=== PATIENT | female | born 1960 | race Caucasian/White ===

== ENCOUNTER → 2017-10-26 | Outpatient (CLI) | payer OTHER ==
--- NOTE | 2017-10-26 15:58 | MR ---
EXAMINATION TYPE: MR shoulder RT wo con DATE OF EXAM: 10/26/2017 COMPARISON: Outside x-ray dated 10/10/2017 HISTORY: Pain in right shoulder TECHNIQUE: Multiplanar, multisequence imaging of the right shoulder is performed without contrast. FINDINGS: Rotator Cuff: There is thickening and increased signal involving the distal margin and insertion of the supraspina tus tendon extending a length of approximately 1 cm and AP dimension of 1.5 cm. In greatest involveme nt of the anterior fibers. Findings compatible with partial tear with no evidence of retraction. Infraspinatus and subscapularis tendons appear intact. Acromioclavicular Joint: There is marked hypertrophic change of the AC joint with narrowing of the olegario int space. There are spurs extending inferiorly impression the supraspinatus tendon and muscle compat ible with impingement. Glenohumeral Joint: No sizable joint effusion. Glenohumeral ligaments appear intact. Labrum: The labrum appears grossly intact given limitation of non-arthrogram study. Biceps Tendon: Bicipital tendon is well situated within the bicipital groove. Small amount of increas ed fluid surrounding the tendon within the sheath compatible with tendinosis. No evidence of retracti on or tear. Bone marrow signal: No focal abnormal marrow signal is appreciated. IMPRESSION: 1. Impingement secondary to AC joint arthropathy of the supraspinatus tendon and muscle resulting in severe tendinosis and partial tear involving the distal margin and insertion of the supraspinatus ten don. No evidence of retraction. 2. Mild bicipital tendinosis.
== END | disposition home or self-care (01) ==
LOC: RADMRIMAIN 15:06
PROVIDERS: ATTEND Orthopaedic Surgery
DX: M75.111 Incomplete rotator cuff tear or rupture of right shoulder, not specified as traumatic (principal); M12.9 Arthropathy, unspecified; M67.813 Other specified disorders of tendon, right shoulder

== ENCOUNTER → 2017-11-24 | Outpatient (CLI) | payer OTHER ==
[2017-11-24 16:50] LABS: Basophils # (A) 0.1 k/uL (0-0.2); Basophils % (A) 1 %; Eosinophils # (A) 0.2 k/uL (0-0.7); Eosinophils % (A) 3 %; Lymphocytes # (A) 2.5 k/uL (1.0-4.8); Lymphocytes % (A) 37 %; MCH 31.5 pg (25.0-35.0); MCHC 35.8 g/dL (31.0-37.0); MCV 87.9 fL (80.0-100.0); Mean Platelet Volume 6.8; Monocytes # (A) 0.5 k/uL (0-1.0); Monocytes % (A) 7 %; Neutrophils # (A) 3.2 k/uL (1.3-7.7); Neutrophils % (A) 49 %; Platelet Count 262 k/uL (150-450); RBC 4.78 m/uL (3.80-5.40); WBC 6.6 k/uL (3.8-10.6)
== END | disposition home or self-care (01) ==
LOC: LABPAT 16:07
PROVIDERS: ATTEND Orthopaedic Surgery
DX: Z01.818 Encounter for other preprocedural examination (principal); Z01.812 Encounter for preprocedural laboratory examination; M75.41 Impingement syndrome of right shoulder
CPT/HCPCS: 36415; 80051; 85025; 93005

== ENCOUNTER 2017-12-06 06:49 | Day surgery (SDC) | payer OTHER ==
--- NOTE | 2017-12-05 08:59 | HP ---
HISTORY AND PHYSICAL Surgery is scheduled for 12/06/2017. Isis Brown is a 56-year-old patient seen with progressive right shoulder pain. After having treatment options discussed, she elected to proceed with arthroscopy. Consent regarding the procedure was obtained. PAST MEDICAL HISTORY: Noncontributory. PAST SURGICAL HISTORY: section, ankle surgery. DAILY MEDICATIONS: None reported. ALLERGIES: None known. SOCIAL HISTORY: Patient denies tobacco use. PHYSICAL EVALUATION RIGHT SHOULDER: Flexion is 150 degrees, abduction 140 degrees, external rotation is 40 degrees with some pain and weakness. Tenderness along the anterolateral acromion and rotator cuff insertion site as well as the acromioclavicular joint. Impingement sign is positive at 100 degrees. Drop-arm sign is positive. Distal neurovascular exam is intact. Radiographs of the right shoulder revealed a type 2 anterior acromion, evidence for acromioclavicular joint osteoarthritis and cystic changes of the greater tuberosity. An MRI of the right shoulder revealed a partial rotator cuff tear, impingement, biceps tendinitis and acromioclavicular joint osteoarthritis. IMPRESSION: Right shoulder impingement with partial rotator cuff tear and acromioclavicular joint osteoarthritis. PLAN: Right shoulder arthroscopy with subacromial decompression, possible arthroscopic rotator cuff repair probable Anup procedure and debridement. MMODL / IJN: [id number] /
[~2017-12-06 06:49] MED LIST: HYDROmorphone 0.5 MG/0.5 ML SYRINGE IVP PRN; LACTATED RINGERS 1,000 ML IV SCH; ONDANSETRON 4 MG/2 ML VIAL IVP PRN; ceFAZolin IN SWFI 2 GM/20 ML SYRINGE IVP ONE
[2017-12-06] MEDS ORDERED: LIDOCAINE 1% 20 ML VIAL (10MG/ML) FOR IV START INTRADERMA ONE (07:30)
[2017-12-06] MEDS ORDERED: MIDAZOLAM 2 MG/2 ML VIAL ONE (07:32)
[2017-12-06] MEDS ORDERED: DEXAMETHASONE SOD PHOSPHATE 10 MG/ML 1 ML VIAL IV ONE (07:51)
[2017-12-06] MEDS ORDERED: LIDOCAINE 1% INJ 10MG/ML (20 ML MDV) ONE (08:25)
[2017-12-06] MEDS ORDERED: PROPOFOL 10 MG/ML 20 ML VIAL IV ONE (08:25)
[2017-12-06] MEDS ORDERED: PHENYLEPHRINE-0.9% NACL SYG 1 MG/10 ML SYRINGE ONE (08:25)
[2017-12-06] MEDS ORDERED: fentaNYL (PF) 50 MCG/ML 2 ML AMP ONE (08:25)
[2017-12-06] MEDS ORDERED: SUCCINYLCHOLINE CHLORIDE 100 MG/5 ML SYR IV ONE (08:25)
--- NOTE | 2017-12-06 10:13 | P.OP ---
Date of Procedure: 12/06/17 Preoperative Diagnosis: Right shoulder impingement Postoperative Diagnosis: 1. Right shoulder rotator cuff tear 2. Right shoulder impingement 3. Right shoulder acromioclavicular joint osteoarthritis 4. Right shoulder partial long head biceps tendon tear 5. Right shoulder superficial labral tear Procedure(s) Performed: 1. Right shoulder arthroscopic rotator cuff repair 2. Right shoulder arthroscopic subacromial decompression 3. Right shoulder arthroscopic Anup procedure 4. Right shoulder arthroscopic biceps tenotomy 5. Right shoulder arthroscopic debridement labral tear Implants: none Anesthesia: GETA, regional (Interscalene block) Surgeon: Gabe Frederick Parts Finisher #1: Anthony Faye Estimated Blood Loss (ml): 15 Pathology: none sent Condition: stable Disposition: PACU Indications for Procedure: 56-year-old patient seen with progressive right shoulder pain. After treatment options were discussed, she elected to proceed with arthroscopy. Operative Findings: see description of procedure Description of Procedure: Patient underwent a shoulder block by department of anesthesia. The patient was then taken to the operative suite. The patient underwent a general anesthetic by the department of anesthesia. The patient was placed into a lateral position and secured. There was appropriate padding of the bony prominence. Right shoulder was then prepped and draped in normal sterile orthopedic fashion. We placed the extremity in 10 pounds of longitudinal traction. A posterior incision was now made for a posterior working portal site. The trocar and cannula were inserted into the glenohumeral joint. Arthroscopy was initiated. Spinal needle was now inserted anteriorly, to ascertain the anterior working portal site. An incision was now made in that area, a trocar was inserted followed by a probe. Was superficial tearing noted of the superior labrum. Partial tearing and hyperemia long head biceps tendon. Grade 1/2 chondromalacia changes anterior portion of the glenoid. No loose bodies. I performed an arthroscopic biceps tenotomy. I debrided the superficial labral tear down to stable tissue. The residual labrum was stable. Instruments now removed from the glenohumeral joint. Utilizing the posterior working portal site, the trocar and cannula were inserted into the subacromial space. Arthroscopy initiated. I made an incision 2 fingerbreadths lateral to the acromion. I introduced my trocar followed by my ArthroCare ablator. I now began ablating thick subacromial bursal tissue, which exposed the undersurface of the anterior acromion. This was diminished subacromial space. There was a very prominent anterior acromion. A motorized bur was introduced and a subacromial decompression was performed. I also excised some osteophytes off the inferior aspect of the distal clavicle. The AC joint was visualized and noted to be fairly arthritic. Our motorized bur was introduced in the anterior portal site and a Anup procedure was performed without difficulty, decompressing the AC joint nicely. I turned my attention to the rotator cuff. There was a fairly large intrasubstance rotator cuff tear present. I debrided the margins down to stable tissue. I passed 4 simple interrupted sutures through good bites of rotator cuff tendon. All 4 sutures were now tied arthroscopically repairing our intrasubstance tear very nicely. The suture limbs were clipped. The repair was probed and found to be stable. I injected 1 mL of UCT intra-articular. Instruments now removed from the portal sites. All portal sites were approximated with nylon suture. Sterile dressings were applied followed by a shoulder immobilizer. Marcus GREER assisted with the procedure. The patient was awakened, transferred to a bed, and taken to recovery in stable condition.
[2017-12-06 10:25] VITALS: RESP 16; TEMP 97
[2017-12-06 12:17] VITALS: BP 135/89; PULSE 83
== END 2017-12-06 12:52 | disposition home or self-care (01) ==
LOC: OR 06:49
PROVIDERS: ATTEND Orthopaedic Surgery
DX: M75.101 Unspecified rotator cuff tear or rupture of right shoulder, not specified as traumatic (principal); M75.41 Impingement syndrome of right shoulder; M19.011 Primary osteoarthritis, right shoulder; S43.491A Other sprain of right shoulder joint, initial encounter; S46.111A Strain of muscle, fascia and tendon of long head of biceps, right arm, initial encounter; X58.XXXA Exposure to other specified factors, initial encounter; M25.711 Osteophyte, right shoulder; Z79.1 Long term (current) use of non-steroidal anti-inflammatories (NSAID)
CPT/HCPCS: 64415; 81025; 29824; 29827; 29826; C1894; C1765; J2250; J1100; J2405; J2001; J3010; J2370; J0330; J2704; J0690

== ENCOUNTER → 2019-04-10 | Outpatient (CLI) | payer BC ==
--- NOTE | 2019-04-10 08:39 | BD ---
EXAMINATION TYPE: Axial Bone Density DATE OF EXAM: 04/10/2019 COMPARISON: NONE CLINICAL HISTORY: Postmenopausal female. Height: 63.5 IN Weight: 193 LBS RISK FACTORS HISTORY OF: Active: YES Postmenopausal woman: AGE 57 Take estrogen and/or progesterone medications: NOT NOW How long: TOOK CONTROL FOR 10 YEARS MEDICATIONS: Additional Medications: MULTI VIT, BABY ASPIRIN EXAM MEASUREMENTS: Bone mineral densitometry was performed using the [employer]. Bone mineral density as measured about the Lumbar spine is: ----- L1-L4(G/cm2): 1.269 T Score Values are as follows: ----- L2: 0.6 ----- L3: 0.6 ----- L4: 1.1 ----- L1-L4: 0.7 Bone mineral density BASELINE Bone mineral density about the R hip (g/cm2): 0.978 Bone mineral density about the L hip (g/cm2): 0.964 T Score values are as follows: -----R Neck: -0.4 -----L Neck: -0.5 -----R Total: 0.7 -----L Total: 1.0 Bone mineral density BASELINE IMPRESSION: Normal (Values between +1 and -1 indicate normal bone mass). Consider repeating this study in 5 year s or sooner if there is some new clinical indication. NOTE: T-SCORE=SD OF THE YOUNG ADULT MEAN.
--- NOTE | 2019-04-10 13:50 | MM ---
Reason for exam: screening (asymptomatic). Last mammogram was performed 3 years ago. History: Patient is postmenopausal. Excisional biopsy of the right breast. Took hormonal contraceptives for 11 years beginning at age 35. Physical Findings: A clinical breast exam by your physician is recommended on an annual basis and results should be correlated with mammographic findings. MG 3D Screening Mammo W/Cad Bilateral CC and MLO view(s) were taken. XCCL view(s) were taken of the left breast. Prior study comparison: April 25, 2016, left breast MG work up mamm w CAD LT. April 18, 2016, bilateral MG screening mammo w CAD. The breast tissue is heterogeneously dense. This may lower the sensitivity of mammography. Finding: There are typically benign vascular, round calcifications. Asymmetric breast tissue left breast is stable outer aspect. There is no discrete abnormality. ASSESSMENT: Benign, BI-RAD 2 RECOMMENDATION: Routine screening mammogram of both breasts in 1 year.
== END | disposition home or self-care (01) ==
LOC: RADMAMWWP 07:34
PROVIDERS: ATTEND Obstetrics & Gynecology
DX: Z12.31 Encounter for screening mammogram for malignant neoplasm of breast (principal); N95.1 Menopausal and female climacteric states
CPT/HCPCS: 77063; 77067; 77080

== ENCOUNTER → 2020-04-16 | Outpatient (CLI) | payer BC ==
--- NOTE | 2020-04-17 15:07 | MM ---
Reason for exam: screening (asymptomatic). Last mammogram was performed 1 year ago. History: Patient is postmenopausal. Excisional biopsy of the right breast. Took hormonal contraceptives for 11 years beginning at age 35. Physical Findings: A clinical breast exam by your physician is recommended on an annual basis and results should be correlated with mammographic findings. MG 3D Screening Mammo W/Cad Bilateral CC and MLO view(s) were taken. Prior study comparison: April 10, 2019, bilateral MG 3d screening mammo w/cad. April 25, 2016, left breast MG work up mamm w CAD LT. There are scattered fibroglandular densities. No significant changes when compared with prior studies. ASSESSMENT: Benign, BI-RAD 2 RECOMMENDATION: Routine screening mammogram of both breasts in 1 year.
== END | disposition home or self-care (01) ==
LOC: RADMAMWWP 07:07
PROVIDERS: ATTEND Obstetrics & Gynecology
DX: Z12.31 Encounter for screening mammogram for malignant neoplasm of breast (principal)
CPT/HCPCS: 77063; 77067

== ENCOUNTER 2020-06-19 10:51 | Day surgery (SDC) | payer BC ==
[2020-06-16 14:12] VITALS: BMI 31.6
[~2020-06-19 10:51] MED LIST changes: -HYDROmorphone 0.5 MG/0.5 ML SYRINGE IVP PRN; +LIDOCAINE 1% (10MG/ML) FOR IV START INTRADERMA PRN; -ONDANSETRON 4 MG/2 ML VIAL IVP PRN; -ceFAZolin IN SWFI 2 GM/20 ML SYRINGE IVP ONE
[2020-06-19 11:23] VITALS: TEMP 98.6
[2020-06-19] MEDS ORDERED: fentaNYL (PF) 50 MCG/ML 2 ML AMP IV ONE (12:35)
[2020-06-19] MEDS ORDERED: PROPOFOL 10 MG/ML 20 ML VIAL IV ONE (12:49)
--- NOTE | 2020-06-19 13:10 | P.PCN ---
Date of Procedure: 06/19/20 Procedure(s) Performed: BRIEF HISTORY: Patient is a 59-year-old pleasant white female scheduled for an elective colonoscopy as a part of screening for colorectal neoplasia. she has family history of colon cancer diagnosed in her father at age 60. PROCEDURE PERFORMED: Colonoscopy. PREOPERATIVE DIAGNOSIS:Screening for colon cancer and family history of colon cancer IV sedation per Anesthesia. PROCEDURE: After informed consent was obtained, the patient, was brought into the endoscopy unit. IV sedation was administered by Anesthesia under continuous monitoring. Digital rectal examination was normal. Initially the Olympus CF-160 flexible video colonoscope was then inserted in the rectum, gradually advanced into the cecum without any difficulty. Careful examination was performed as the scope was gradually being withdrawn. Ileocecal valve and the appendiceal orifice were visualized and appeared normal. Prep was excellent. Mucosa of the cecum, ascending colon, transverse colon, descending colon, sigmoid colon, and rectum appeared normal. scattered sigmoid diverticulosis. Retroflexion was performed in the rectum and no lesions were seen. The patient tolerated the procedure well. IMPRESSION: Normal-appearing colon from rectum to cecum with no evidence of colorectal neoplasia . Scattered sigmoid diverticulosis RECOMMENDATIONS: Findings of this examination were discussed with the patient as well as her family. She was advised to have a repeat screening colonoscopy in 5 years now because of the family history of colon.
[2020-06-19 13:38] VITALS: BP 124/81; PULSE 69; RESP 20
== END 2020-06-19 13:55 | disposition home or self-care (01) ==
LOC: ORWHC2ENDO 10:51
PROVIDERS: ATTEND Internal Medicine Gastroenterology
DX: Z12.11 Encounter for screening for malignant neoplasm of colon (principal); K57.30 Diverticulosis of large intestine without perforation or abscess without bleeding; Z80.0 Family history of malignant neoplasm of digestive organs; Z79.899 Other long term (current) drug therapy; Z79.82 Long term (current) use of aspirin; Z98.890 Other specified postprocedural states
CPT/HCPCS: J3010; J2704; G0105; 45378

== ENCOUNTER → 2021-05-31 | Outpatient (CLI) | payer BC ==
--- NOTE | 2021-06-02 09:36 | MM ---
Reason for exam: screening (asymptomatic). Last mammogram was performed 1 year and 1 month ago. History: Patient is postmenopausal. Excisional biopsy of the right breast. Took hormonal contraceptives for 11 years beginning at age 35. Physical Findings: A clinical breast exam by your physician is recommended on an annual basis and results should be correlated with mammographic findings. MG 3D Screening Mammo W/Cad Bilateral CC, MLO, and XCCL view(s) were taken. Prior study comparison: April 16, 2020, bilateral MG 3d screening mammo w/cad. April 10, 2019, bilateral MG 3d screening mammo w/cad. April 18, 2016, bilateral MG screening mammo w CAD. There are scattered fibroglandular densities. No significant changes when compared with prior studies. ASSESSMENT: Negative, BI-RAD 1 RECOMMENDATION: Routine screening mammogram of both breasts in 1 year.
== END | disposition home or self-care (01) ==
LOC: RADMAMWWP 15:21
PROVIDERS: ATTEND Obstetrics & Gynecology
DX: Z12.31 Encounter for screening mammogram for malignant neoplasm of breast (principal); Z78.0 Asymptomatic menopausal state
CPT/HCPCS: 77063; 77067

== ENCOUNTER 2022-01-13 22:47 | Emergency (ER) | payer BC ==
[2022-01-14 00:03] VITALS: TEMP 98.2
[2022-01-14] MEDS ORDERED: KETOROLAC 15 MG/ML 1 ML VIAL IM STA (01:06)
[2022-01-14] MEDS ORDERED: ORPHENADRINE 30 MG/ML 2 ML VIAL IM STA (01:06)
--- NOTE | 2022-01-14 01:21 | ED ---
Neck Injury/Pain HPI - General Chief Complaint: Neck Pain/Injury Stated Complaint: Left side neck pain Time Seen by Provider: 01/14/22 00:39 Source: RN notes reviewed Mode of arrival: ambulatory Limitations: no limitations - History of Present Illness Initial Comments: This is a pleasant 61-year-old female who comes ER complaining of right posterior neck pain which started a few hours ago. Patient states that she was riding in a car when it started. Patient states that turning her head to the right and leaning forward causes quite a bit of pain. Pain is sharp, somewhat alleviated by rest. She is able to her head to the left and extend her head with no significant history. She denies any chest pain or shortness of breath. There was no fall or injury. No paresthesias. No limb weakness. No vision or hearing disturbance. No slurred speech. No abdominal pain. No nausea vomiting. No headache. MD Complaint: neck pain - Related Data Home Medications Medication Instructions Recorded Confirmed Multivitamins, Thera [Theragran] 1 each PO DAILY 05/20/15 06/16/20 Aspirin [Adult Low Dose Aspirin EC] 81 mg PO QAM 06/16/20 06/16/20 Cetirizine HCl [Zyrtec] 10 mg PO HS 06/16/20 06/16/20 Water Pill (Unknown Name/Dose) 1 tab PO QAM 06/16/20 06/16/20 Previous Rx's Medication Instructions Recorded Cyclobenzaprine [Flexeril] 10 mg PO TID PRN #20 tab 01/14/22 Naproxen [Naprosyn] 375 mg PO Q12HR PRN #20 tablet 01/14/22 Allergies Allergy/AdvReac Type Severity Reaction Status Date / Time No Known Allergies Allergy Verified 01/14/22 00:04 Review of Systems ROS Statement: Those systems with pertinent positive or pertinent negative responses have been documented in the HPI. ROS Other: All systems not noted in ROS Statement are negative. Past Medical History Past Medical History: Hearing Disorder / Deafness, Osteoarthritis (OA) Additional Past Medical History / Comment(s): SEASONAL SINUS-HAS FLUID IN RIGHT EAR CAUSING DIFFICULTY WITH HEARING. History of Any Multi-Drug Resistant Organisms: None Reported Past Surgical History: Breast Surgery, Section, Orthopedic Surgery Additional Past Surgical History / Comment(s): RIGHT BREAST LUMPECTOMY- BENIGN, LEFT ANKLE SURGERY X2, BUNIONECTOMY RIGHT FOOT, polyps removed. Past Anesthesia/Blood Transfusion Reactions: No Reported Reaction Past Psychological History: No Psychological Hx Reported Smoking Status: Never smoker Past Alcohol Use History: None Reported Past Drug Use History: None Reported - Past Family History Mother Family Medical History: Hypertension Father Family Medical History: Cancer Additional Family Medical History / Comment(s): COLON CANCER. General Exam Limitations: no limitations General appearance: alert, in no apparent distress Head exam: Present: atraumatic, normocephalic, normal inspection Eye exam: Present: normal appearance, PERRL, EOMI. Absent: scleral icterus, conjunctival injection, periorbital swelling ENT exam: Present: normal exam, mucous membranes moist, normal external ear exam Neck exam: Present: normal inspection, tenderness (Patient has some tenderness to the right posterior cervical paraspinals. Axial rotation to the right is limited to about 30. Forward flexion increases pain. Patient has full axial rotation to the left.). Absent: meningismus, full ROM, lymphadenopathy Respiratory exam: Present: normal lung sounds bilaterally. Absent: respiratory distress, wheezes, rales, rhonchi, stridor Cardiovascular Exam: Present: regular rate, normal rhythm, normal heart sounds. Absent: systolic murmur, diastolic murmur, rubs, gallop, clicks GI/Abdominal exam: Present: soft, normal bowel sounds. Absent: distended, tenderness, guarding, rebound, rigid Extremities exam: Present: normal inspection, full ROM, normal capillary refill. Absent: tenderness, pedal edema, joint swelling, calf tenderness Back exam: Present: normal inspection Neurological exam: Present: alert, oriented X3, CN II-XII intact Psychiatric exam: Present: normal affect, normal mood Skin exam: Present: warm, dry, intact, normal color. Absent: rash Course Vital Signs 01/13/22 23:59 Temperature 98.2 F Pulse Rate 84 Respiratory 19 Rate Blood Pressure 170/92 O2 Sat by Pulse 99 Oximetry - Reevaluation(s) Reevaluation #1: 01/14/22 02:02 Patient reevaluated and is improved. Patient neurologically intact. Alert and oriented 4, cranial nerves II through XII intact. Medical Decision Making - Medical Decision Making Patient improved after medications here in the emergency department. Patient was reevaluated prior to discharge. Neurologically intact. Cranial nerves II through XII intact. Patient states the pain is much better. Patient was told to return to the ER for any signs or symptoms worsen. Told to return immediately if any other problems arise. All questions answered. Treatment plan discussed. Patient in agreement Every effort has been made to ensure accuracy of this dictation. However, due to the limitations of electronic medical records and dictation devices, errors in charting still occur. Social resting physician is Dr. Conrad Disposition Clinical Impression: Acute cervical myofascial strain, Elevated blood pressure reading Disposition: HOME SELF-CARE Condition: Good Instructions (If sedation given, give patient instructions): Cervical Strain (ED), Hypertension (ED) Additional Instructions: Follow-up with your regular physician as directed. Return to the ER immediately if any symptoms worsen, new symptoms arise, or any other problems develop. Prescriptions: Cyclobenzaprine [Flexeril] 10 mg PO TID PRN #20 tab PRN Reason: Spasms Naproxen [Naprosyn] 375 mg PO Q12HR PRN #20 tablet PRN Reason: Pain Is patient prescribed a controlled substance at d/c from ED?: No Referrals: Marli Chong MD [Primary Care Provider] - 1-2 days Time of Disposition: 02:03
[2022-01-14 02:21] VITALS: BP 142/93; PULSE 72; RESP 18
== END 2022-01-14 02:21 | disposition home or self-care (01) ==
LOC: EC 22:47
DX: S16.1XXA Strain of muscle, fascia and tendon at neck level, initial encounter (principal); R03.0 Elevated blood-pressure reading, without diagnosis of hypertension; M19.90 Unspecified osteoarthritis, unspecified site; Z79.82 Long term (current) use of aspirin; X50.0XXA Overexertion from strenuous movement or load, initial encounter
CPT/HCPCS: 99283; 96372 ×2; J2360; J1885

== ENCOUNTER → 2022-06-01 | Outpatient (CLI) | payer BC ==
--- NOTE | 2022-06-02 10:15 | CA ---
Transthoracic Echo Report Name: Isis Brown Age: 61 Gender: F : 1960 Exam Date: 06/01/2022 14:00 Exam Location: [facility] Ht (in): 66 Wt (lb): 188 Ordering Physician: Marli Chong MD Attending/Referring Phys: Ariel Vieyra MD Insurance Solicitor Aura Fox RDCS Procedure CPT: Indications: R94.31 abn ekg Cardiac Hx: Technical Quality: Fair Contrast 1: Total Dose (mL): Contrast 2: Total Dose (mL): MEASUREMENTS (Male / Female) Normal Values 2D ECHO LV Diastolic Diameter PLAX 3.2 cm 4.2 - 5.9 / 3.9 - 5.3 cm LV Systolic Diameter PLAX 1.4 cm IVS Diastolic Thickness 1.4 cm 0.6 - 1.0 / 0.6 - 0.9 cm LVPW Diastolic Thickness 1.2 cm 0.6 - 1.0 / 0.6 - 0.9 cm LV Relative Wall Thickness 0.8 RV Internal Dim ED PLAX 2.6 cm LA Volume 40.8 cm??? 18 - 58 / 22 - 52 cm??? M-MODE Aortic Root Diameter MM 2.3 cm LA Systolic Diameter MM 2.5 cm LA Ao Ratio MM 1.0 AV Cusp Separation MM 1.8 cm DOPPLER AV Peak Velocity 103.9 cm/s AV Peak Gradient 4.3 mmHg LVOT Peak Velocity 85.7 cm/s LVOT Peak Gradient 2.9 mmHg MV Area PHT 5.7 cm??? Mitral E Point Velocity 59.9 cm/s Mitral A Point Velocity 100.4 cm/s Mitral E to A Ratio 0.6 MV Deceleration Time 132.9 ms TR Peak Velocity 251.2 cm/s TR Peak Gradient 25.2 mmHg Right Ventricular Systolic Press 29.7 mmHg FINDINGS Left Ventricle Moderately increased left ventricular wall thickness. Normal left ventricular systolic function with no obvious regional wall motion abnormalities. Left ventricular ejection fraction is estimated at 55-60 %. Right Ventricle Normal right ventricular size and function. Right Atrium Normal right atrial size. Left Atrium Normal left atrial size. No evidence for an atrial septal defect. Mitral Valve Structurally normal mitral valve. No mitral stenosis, regurgitation or prolapse. Aortic Valve No aortic valve stenosis or regurgitation. Tricuspid Valve Structurally normal tricuspid valve. Mild tricuspid regurgitation. Pulmonic Valve Trace pulmonic regurgitation. Pericardium No pericardial effusion. Aorta Normal size aortic root and proximal ascending aorta. CONCLUSIONS Previewed by: Dr. Anthony Vela MD (Electronically Signed) Final Date: 02 June 2022 10:14
--- NOTE | 2022-06-02 14:47 | BD ---
EXAMINATION TYPE: Axial Bone Density DATE OF EXAM: 06/01/2022 COMPARISON: DEXA bone scan 2019 CLINICAL HISTORY: 61 year old Female. ICD-10 CODE: N951 POST MILA SYMPTOMS Height: 66 Weight: 188 FRAX RISK QUESTIONS: Alcohol (3 or more units per day): no Family History (Parent hip fracture): no Glucocorticoids (More than 3mos): no (Ex: prednisone, prednisolone, methylprednisolone, dexamethasone, and hydrocortisone). History of Fracture in Adulthood: no Secondary Osteoporosis: 1. Type 1 Diabetes: no 2. Hyperthyroidism: no 3. Menopause before 45: no 4. Malnutrition: no 5. Chronic liver disease: no Rheumatoid Arthritis: no Current Tobacco Use: no RISK FACTORS HISTORY OF: Surgery to Spine/Hip(right/left)/Wrist (right/left): no Family History of Osteoporosis: no Active: yes Diet low in dairy products/other sources of calcium: yes Postmenopausal woman: yes Lost more than 2 inches in height since high school: no MEDICATIONS: Additional History: EXAM MEASUREMENTS: Bone mineral densitometry was performed using the [employer]. Bone mineral density as measured about the Lumbar spine is: ----- L1-L4(G/cm2): 1.190 T Score Values are as follows: ----- L1: -0.1 ----- L2: -0.5 ----- L3: 0.1 ----- L4: 0.7 ----- L1-L4: 0.1 Bone mineral density : 2019 Bone mineral density about the R hip (g/cm2): 0.904 Bone mineral density about the L hip (g/cm2): 0.908 T Score values are as follows: -----R Neck: -1.0 -----L Neck: -0.9 -----R Total: 0.4 -----L Total: 0.5 Bone mineral density : 2019 FRAX%s: The graph provided illustrates a 6.9% chance for a major osteoporotic fx and a 0.4% chance fo r the hips probability for fx in 10 years time. IMPRESSION: Normal (Values between +1 and -1 indicate normal bone mass). Consider repeating this study in 5 year s or sooner if there is some new clinical indication. NOTE: T-SCORE=SD OF THE YOUNG ADULT MEAN.
--- NOTE | 2022-06-03 18:54 | MM ---
Reason for Exam: Screening (asymptomatic). Last screening mammogram was performed 12 month(s) ago. Patient History: Menarche at age 15. First Full-Term at age 24. Postmenopausal. Hormonal Contraceptives, starting at age 35 for 11 years. Excisional Biopsy on the Right side. Risk Values: Luz 5 year model risk: 1.4%. NCI Lifetime model risk: 7.1%. Prior Study Comparison: 04/10/2019 Bilateral Screening Mammogram, [facility]. 04/16/2020 Bilateral Screening Mammogram, [facility]. 05/31/2021 Bilateral Screening Mammogram, [facility]. Tissue Density: There are scattered fibroglandular densities. Findings: Analyzed By CAD. There is no suspicious group of microcalcifications or new suspicious mass in either breast. Overall Assessment: Negative, BI-RAD 1 Management: Screening Mammogram of both breasts in 1 year. A clinical breast exam by your physician is recommended on an annual basis and results should be correlated with mammographic findings. Electronically signed and approved by: Quang Wells DO
== END | disposition home or self-care (01) ==
LOC: RADECHMAIN 13:57
PROVIDERS: ATTEND Family Medicine
DX: Z12.31 Encounter for screening mammogram for malignant neoplasm of breast (principal); M85.851 Other specified disorders of bone density and structure, right thigh; Z78.0 Asymptomatic menopausal state; R94.31 Abnormal electrocardiogram [ECG] [EKG]
CPT/HCPCS: 77063; 77067; 77080; 93306

== ENCOUNTER → 2023-07-25 | Outpatient (CLI) | payer OTHER ==
--- NOTE | 2023-07-26 23:27 | MM ---
Reason for Exam: Screening (asymptomatic). Last mammogram was performed 1 year(s) and 2 month(s) ago. Patient History: Menarche at age 15. First Full-Term at age 24. Postmenopausal. Hormonal Contraceptives, starting at age 35 for 11 years. Excisional Biopsy on the Right side. Risk Values: Luz 5 year model risk: 1.4%. NCI Lifetime model risk: 6.9%. Prior Study Comparison: 04/16/2020 Bilateral Screening Mammogram, [facility]. 05/31/2021 Bilateral Screening Mammogram, [facility]. 06/01/2022 Bilateral MG 3D screening mammo w/cad, [facility]. Tissue Density: There are scattered fibroglandular densities. Findings: Analyzed By CAD. Areas of bilateral asymmetric densities remain unchanged. There is no suspicious group of microcalcifications or new suspicious mass in either breast. Overall Assessment: Benign, BI-RAD 2 Management: Screening Mammogram of both breasts in 1 year. . Patient should continue monthly self-breast exams. A clinical breast exam by your physician is recommended on an annual basis. This exam should not preclude additional follow-up of suspicious palpable abnormalities. Note on Luz scores and lifetime risk: 1. A Luz score greater than 3% is considered moderate risk. If this is the case, consider specialist referral to assess eligibility for a risk reducing agent. 2. If overall lifetime risk for the development of breast cancer is 20% or higher, the patient may qualify for future screening with alternating mammogram and breast MRI. Electronically signed and approved by: Gerson Baiely M.D. Radiologist
== END | disposition home or self-care (01) ==
LOC: RADMAMWWP 11:09
PROVIDERS: ATTEND Obstetrics & Gynecology
DX: Z12.31 Encounter for screening mammogram for malignant neoplasm of breast (principal); Z78.0 Asymptomatic menopausal state
CPT/HCPCS: 77063; 77067

== ENCOUNTER → 2024-04-11 | Outpatient (CLI) | payer OTHER ==
[2024-04-11 10:42] LABS: Basophils # (A) 0.11 X 10*3/uL (0.00-0.10); Basophils % (A) 1.5 %; Eosinophils # (A) 0.28 X 10*3/uL (0.04-0.35); Eosinophils % (A) 3.9 %; HGB 14.4 g/dL (12.0-15.0); Lymphocytes # (A) 2.88 X 10*3/uL (0.90-5.00); Lymphocytes % (A) 39.6 %; MCH 30.3 pg (27.0-32.0); MCHC 33.5 g/dL (32.0-37.0); MCV 90.3 FL (80.0-97.0); Mean Platelet Volume 10.3 FL (9.5-12.2); Monocytes % (A) 8.3 %; NRBC Per 100 WBC 0 X 10*3/uL (0.00-0.01); Neutrophils # (A) 3.38 X 10*3/uL (1.80-7.70); Neutrophils % (A) 46.4 %; Platelet Count 244 X 10*3/uL (140-440); RBC 4.76 X 10*6/uL (4.10-5.20); RDW 12.6 % (11.5-14.5); WBC 7.27 X 10*3/uL (4.50-10.00)
[2024-04-11 11:02] LABS: ALT 23 U/L (8-44); AST 18 U/L (13-35); Albumin 4.4 g/dL (3.8-4.9); Albumin/Globulin Ratio 1.52 Ratio (1.60-3.17); Alkaline Phosphatase 51 U/L (41-126); BUN/Creat Ratio 19.12 Ratio (12.00-20.00); Blood Urea Nitrogen 15.3 mg/dL (9.0-27.0); Calcium 10.3 mg/dL (8.7-10.3); Carbon Dioxide 23.1 mmol/L (21.6-31.8); Chloride 107 mmol/L (96-109); Chol/HDL Ratio 6.09 Ratio; Globulin 2.9 g/dL (1.6-3.3); Glucose 110 mg/dL (70-110); LDL Cholesterol,Calculated 109.1 mg/dL (0.0-131.0); Potassium 3.9 mmol/L (3.5-5.5); Sodium 142 mmol/L (135-145); Total Bilirubin 0.4 mg/dL (0.3-1.2); Total Protein 7.3 g/dL (6.2-8.2)
== END | disposition home or self-care (01) ==
LOC: LABWHC1 07:13
PROVIDERS: ATTEND Family Medicine
DX: I10 Essential (primary) hypertension (principal); E78.1 Pure hyperglyceridemia; R73.9 Hyperglycemia, unspecified; R73.03 Prediabetes
CPT/HCPCS: 36415; 80053; 80061; 83036; 84439; 84443; 85025

== ENCOUNTER → 2024-07-26 | Outpatient (CLI) | payer OTHER ==
--- NOTE | 2024-07-27 18:04 | BD ---
EXAMINATION TYPE: Axial Bone Density DATE OF EXAM: 07/26/2024 CLINICAL HISTORY: 63 years old Female. ICD-10 CODE: N95.9 MENOPAUSE , Additional History: Height: 63.5 in Weight: 176 lbs EXAM MEASUREMENTS: Bone mineral densitometry was performed using the [employer]. Bone mineral density as measured about the Lumbar spine is: ----- L1-L4(G/cm2): 1.147 T Score Values are as follows: ----- L1: -0.9 ----- L2: -0.4 ----- L3: -0.4 ----- L4: 0.3 ----- L1-L4: -0.3 Z Score Values are as follows: ----- L1: 0.0 ----- L2: 0.5 ----- L3: 0.5 ----- L4: 1.2 ----- L1-L4: 0.6 Bone mineral density has: Decreased -3.6% since study of: 06/01/2022 Bone mineral density about the R hip (g/cm2): 1.032 Bone mineral density about the L hip (g/cm2): 1.014 T Score values are as follows: -----R Neck: -1.5 -----L Neck: 0.3 -----R Total: 0.2 -----L Total: 0.1 Z Score values are as follows: -----R Neck: 0.9 -----L Neck: 0.8 -----R Total: 0.0 -----L Total: 0.3 Bone mineral density has: Decreased -3.9% since study of: 06/01/2022 FRAX%s: The graph provided illustrates a 7.6% chance for a major osteoporotic fx and a 0.5% chance fo r the hips probability for fx in 10 years time. IMPRESSION: Osteopenia (T Score between -2.5 and -1). There is slightly increased risk of fracture and the patient may be considered for treatment. Re-Screen 2-5 years. NOTE: T-SCORE=SD OF THE YOUNG ADULT MEAN. [facility], , 07/27/2024 6:02 PM
--- NOTE | 2024-07-29 09:18 | MM ---
Reason for Exam: Screening (asymptomatic). Last screening mammogram was performed 12 month(s) ago. Patient History: Menarche at age 15. First Full-Term at age 24. Postmenopausal. Hormonal Contraceptives, starting at age 35 for 11 years. Excisional Biopsy on the Right side. Risk Values: Luz 5 year model risk: 1.5%. NCI Lifetime model risk: 6.7%. Prior Study Comparison: 05/31/2021 Bilateral Screening Mammogram, [facility]. 06/01/2022 Bilateral MG 3D screening mammo w/cad, [facility]. 07/25/2023 Bilateral MG 3D screening mammo w/cad, [facility]. Tissue Density: There are scattered areas of fibroglandular density. Findings: Analyzed By CAD. Right breast: There is no suspicious group of microcalcifications or new suspicious mass. Left breast: There is no suspicious group of microcalcifications or new suspicious mass. Overall Assessment: Negative, BI-RAD 1 Management: Screening Mammogram of both breasts in [address] [facility] will attempt to contact patient to return for supplemental views and ultrasound if indicated. Patient should continue monthly self-breast exams. A clinical breast exam by your physician is recommended on an annual basis. This exam should not preclude additional follow-up of suspicious palpable abnormalities. Note on Luz scores and lifetime risk: 1. A Luz score greater than 3% is considered moderate risk. If this is the case, consider specialist referral to assess eligibility for a risk reducing agent. 2. If overall lifetime risk for the development of breast cancer is 20% or higher, the patient may qualify for future screening with alternating mammogram and breast MRI. [facility], , 07/29/2024 9:15 AM. Electronically signed and approved by: Quang Wells DO
== END | disposition home or self-care (01) ==
LOC: RADMAMWWP 07:01
PROVIDERS: ATTEND Family Medicine
DX: Z12.31 Encounter for screening mammogram for malignant neoplasm of breast (principal); R92.323 Mammographic fibroglandular density, bilateral breasts; M85.89 Other specified disorders of bone density and structure, multiple sites; Z78.0 Asymptomatic menopausal state
CPT/HCPCS: 77063; 77067; 77080